=== PATIENT | female | born 1940 | race Caucasian/White ===

== ENCOUNTER 2017-01-15 22:25 | Observation (INO) | payer MEDICARE, OTHER ==
[~2017-01-15] VITALS: Ht 160 cm; Wt 48.9 kg
[2017-01-15 22:30] VITALS: BP 181/71; PULSE 81; RESP 24; O2SAT 100
--- NOTE | 2017-01-15 22:38 | ED.REPORT ---
HPI-Chest Pain 40 and Over Date of Service January 15, 2017 ED Provider: Dr. Pat Pt is a 76 y/o female w/ a hx of CAD s/p CABG x3, HTN, DM, and CKD, presenting to the ED c/o right-sided CP with radiation to the onset 18:00 tonight. She was sitting watching TV and spontaneously began experiencing CP which gradually worsened. She took Nitro x2 at home with no relief. Previous anginal symptoms included CP with radiation to the neck which she is only experiencing mildly today. She c/o associated pleuritic chest pain. Pt denies nausea, vomiting, chills, diaphoresis, cough, SOB. She ate about 1 hour prior to the onset of her pain and has never had a cholecystectomy. Nursing Notes Stated Complaint: CHEST AND SHOULDER PAIN Chief Complaint: Chest Pain Nursing Notes Reviewed: Yes Allergies: Coded Allergies: gemfibrozil (Unverified Allergy, Mild, 01/16/17) Uncoded Allergies: GEMIFIBROZIL (Allergy, Mild, unknown, 01/15/17) Scheduled Aspirin Chew (Aspirin Chew) 81 Mg Chew 81 MG PO DAILY Atorvastatin (Lipitor) 10 Mg Tab 10 MG PO DAILY Cetirizine HCl (Zyrtec) 10 Mg Capsule 10 MG PO DAILY Insul NPH Hu Rec/Ins Rg Hu Rec (Novolin 70/30 U100 Insulin Vial) 100 U/1 Ml U 16 U SUBQ BIDWM Insulin Aspart (NovoLOG U-100 Pen) 100 Unit/Ml Insuln.pen 16 UNITS SQ Brekfast & dinner Isosorbide MN ER (Isosorbide MN ER) 30 Mg Tab.er.24h 30 MG PO DAILY Lipase/Protease/Amylase (Donna COON) 24,000 Unit Capsule 3 PO TIDWM Lipase/Protease/Amylase (Donna COON) 24,000 Unit Capsule 2 CAPSULE PO Before snacks Lisinopril (Lisinopril) 20 Mg Tablet 20 MG PO DAILY Lorazepam (Lorazepam) 0.5 Mg Tablet 0.5 MG PO HS Potassium Citrate ER (Urocit-K) 10 Meq Tablet 10 MEQ PO BID General Time Seen by MD: 22:37 Chief Complaint Chest pain Hx Obtained From: Patient Arrived By: Walk-in Sudden in Onset?: No Onset Occurred: 1 - 4 hours ago Symptom Duration: Since onset Location: : Chest right Quality: Painful Radiation: : Arm right: Shoulder right Severity: Current: Mild Severity: Maximum: Moderate Past Medical History Past Medical History HTN DM CAD s/p CABG x3 CKD Peripheral neuropathy Vitiligo Past Surgical History CABG x3 Smoking History Unknown if Ever Smoker Ambulatory Status Independent Review of Systems Constitutional: Denies: Chills, Fever Respiratory: Reports: Pleuritic pain, Denies: Non-productive cough, Shortness of breath Cardiovascular: Reports: Chest pain, Denies: Dyspnea on exertion, Edema GI: Denies: Abdominal pain, Diarrhea, Nausea, Vomiting Musculoskeletal: Reports: Extremity pain, Denies: Extremity swelling Complete sys rev & neg: except as marked. Physical Exam Initial Vital Signs Vital Signs (First) Date Time Temp Pulse Resp B/P Pulse Ox O2 Delivery O2 Flow Rate FiO2 01/15/17 22:30 81 24 181/71 100 Room Air Initial VS: Reviewed, Vital signs abnormal Head / Eyes: Atraumatic, Normocephalic, PERRL ENT: Mucous membranes moist, Conjunctiva normal, No scleral icterus Neck: Supple, Full range of motion Extremities: Vascular intact, Neuro intact, No swelling, No tenderness Skin: Warm, Dry, No cyanosis Neurologic: Alert, Oriented, Nonfocal Psychiatric: Mood/affect normal, Behavior normal, Normal thought content General/Constitutional: Awake, Alert, No acute distress, Well appearing, Well hydrated, Cooperative, Not toxic appearing Respiratory / Chest: Atraumatic, Breath sounds NL, Breath sounds = bilat, No respiratory distress, No rales, No rhonchi, No wheezing, No retractions, No stridor, No chest tenderness, No chest wall deformity, No crepitus Cardiovascular: Heart rate NL, Regular rhythm, Heart sounds NL, No gallop, No murmurs, No rubs, Cap refill not delayed, Peripheral circulation NL Abdomen: Atraumatic, Soft, Non-tender, No guarding, No rebound, No distention, No palpable mass Tenderness/Guarding/Rebound: Negative: Tender RUQ..., Tender epigastric Interpretation & Diagnostics Lab Results Interpretation Result Diagram: 01/15/175 01/15/172304 Test 01/15/17 23:05 White Blood Count 10.7th/mm3 (3.8-10.1) Red Blood Count 3.84mil/mm3 (3.90-5.20) Hemoglobin 11.8g/dL (12.0-15.6) Hematocrit 32.2% (35.0-46.0) Mean Corpuscular Volume 83.9fL (81-100) Mean Corpuscular Hemoglobin 30.7pg (27.0-35.0) Mean Corpuscular Hemoglobin Concent 36.6% (32.0-37.0) Red Cell Distribution Width 12.3% (12.3-15.4) Platelet Count 188bil/L (150-400) Neutrophils (%) (Auto) 66.4% (40-74) Lymphocytes (%) (Auto) 23.4% (14-46) Monocytes (%) (Auto) 8.4% (4-12) Eosinophils (%) (Auto) 1.5% (0-5) Basophils (%) (Auto) 0.2% (0-3) Prothrombin Time 9.5sec (8.1-12.5) Prothromb Time International Ratio 0.89ratio Activated Partial Thromboplast Time 25.4sec (22.8-33.0) D-Dimer < 0.50mg/L FEU (<0.50) Sodium Level 141mEq/L (134-144) Potassium Level 4.2mEq/L (3.5-5.2) Chloride Level 107mEq/L (97-108) Carbon Dioxide Level 19mmol/L (18-29) Blood Urea Nitrogen 34mg/dL (8-27) Creatinine 1.19mg/dL (0.57-1.00) Estimat Glomerular Filtration Rate 63mL/min (>59) Glucose Level 141mg/dL (60-99) Calcium Level 9.8mg/dL (8.5-10.1) Magnesium Level 1.9mg/dL (1.6-2.6) Total Bilirubin 0.2mg/dL (0.0-1.2) Aspartate Amino Transf (AST/SGOT) 36U/L (0-50) Alanine Aminotransferase (ALT/SGPT) 34U/L (0-32) Alkaline Phosphatase 119U/L (25-165) Pro-B-Type Natriuretic Peptide 158.4pg/mL (0-738) Total Protein 7.6g/dL (6.4-8.4) Albumin 4.6g/dL (3.4-5.0) Triglycerides Level 264mg/dL (0-149) Cholesterol Level 137mg/dL (100-199) LDL Cholesterol, Calculated 50.200mg/dL (0-99) VLDL Cholesterol 52.800mg/dL HDL Cholesterol 34mg/dL (>39) Cholesterol/HDL Ratio 4.03 (0.0-4.4) Hold Villagomez Top Tube Received (Received) ECG Interpretation Time: 22:44 Interpreted by: ED physician Normal ECG Interpretation: Normal ECG w/ rate of... (68), Normal rate, Normal sinus rhythm, No acute ischemic changes, Normal QRS, Normal axis, Normal intervals, Adequate tracing ECG Interpretation: EKG taken once patient reports skipped beats and substernal chest pressure Sinus rhythm rate 79 SA exit block, junctional escape beat Time: 23:10 Interpreted by: ED physician X-Ray Chest Interpretation View: Portable, 1 view Interpretation / Wet Read by: Wet read ED physician NL X-Ray Chest Findings: No infiltrate, No acute disease Re-Eval/Medical Decision Med Decision/Clinical Course 76-year-old with known coronary disease presents with right-sided chest pain it is pleuritic and positional. She also some neck discomfort that is more in keeping with prior anginal presentations. She is diabetic and status post CABG, so not a low risk patient. Initial enzymes are negative. EKG is nonacute. However, she had an episode of irregular heartbeat and was found to have sinoatrial exit block on EKG. Acuity of this finding not clear. Admitted now for ongoing monitoring, completion of rule out protocol, and echocardiography this morning. Source of Hx: Old records Time of Eval: 23:08 Re-Evaluation/Progress Note: Pt is now experiencing irregular palpitations which she describes as skipped beats and her chest pain is becoming pressure and migrating substernally. Obtaining repeat EKG. Time of Eval: 00:40 Re-Evaluation/Progress Note: Pt rechecked. Informed pt of need for admission for CP workup. Pt understands and agrees with plan for admission. All questions addressed. Consultation : Referral / Consult Name: Scott Rodriguez MD Consulted With: Hospitalist Call Returned at: 01:14 Social Work Supervisor: Will see patient, Agrees with eval, Agrees with plan, Accepts admit Counseled Regarding: Diagnosis, Lab results, Need for admission Discharge & Departure Primary Impression: Chest pain Chest pain type: unspecified Qualified Code: R07.9 - Chest pain, unspecified Additional Impressions: Sinoatrial block Pleuritic chest pain Diabetes Coronary artery disease Disposition: ADMITTED TO HOSPITAL Discharge Condition All VS Reviewed: Yes Condition: Stable Scribe Attestation Portions of this note were transcribed by Reji Alan. I, Dr. Fatima personally performed the history, physical exam and medical decision-making; I reviewed and confirmed the accuracy of the information in the transcribed note. Signed by Oseas Goodwin, 01/15/17 - 2249 Thang Pat MD January 15, 2017 22:37 REJI ALAN January 15, 2017 22:46
[2017-01-15] MEDS ORDERED: Nitroglycerin 2% 1 Gm Ointment TOPICAL ONE (22:45)
[2017-01-15] MEDS ORDERED: Ondansetron 2 mg/mL 2 mL Inj IVPUSH ONE (22:45)
[2017-01-15] MEDS ORDERED: Pantoprazole 4 mg/mL 10 mL Inj IVPUSH ONE (22:45)
[2017-01-15 23:29] LABS: BASOPHILS % (AUTO) 0.2 % (0-3); EOSINOPHILS % (AUTO) 1.5 % (0-5); MONOCYTES % (AUTO) 8.4 % (4-12); Mean Corpuscular Hemoglobin 30.7 pg (27.0-35.0); Mean Corpuscular Volume 83.9 fL (81-100); NEUTROPHILS % (AUTO) 66.4 % (40-74); Platelet Count 188 bil/L (150-400)
[2017-01-15 23:39] LABS: D-Dimer < 0.50 mg/L FEU (<0.50); INR 0.89 ratio
[2017-01-15 23:54] LABS: Magnesium 1.9 mg/dL (1.6-2.6); TROPONIN T 0.01 ug/L (0.0-0.011)
[2017-01-16] VITALS (9 sets, daily range): BP systolic 113–156; BP diastolic 54–74; PULSE 55–78; RESP 14–18; O2SAT 97–100
[2017-01-16] MEDS ORDERED: 0.9% Sodium Chloride 1,000 ML IV ONE
[2017-01-16] MEDS ORDERED: HYDROmorphone 0.5 mg/0.5 mL iSecure Syringe IVPUSH PRN (01:15)
[2017-01-16] MEDS ORDERED: 0.9% Sodium Chloride 1,000 ML IV SCH (01:19)
[2017-01-16] MEDS ORDERED: Polyethylene Glycol (PEG) 17 Gm Powder PO PRN (01:20)
[2017-01-16] MEDS ORDERED: Ondansetron 2 mg/mL 2 mL Inj IVPUSH PRN (01:20)
[2017-01-16] MEDS ORDERED: Alum-Mag Hydrox-Simeth 30 mL Suspension PO PRN (01:20)
[2017-01-16] MEDS ORDERED: Senna-Docusate 8.6-50 mg Tablet PO PRN (01:20)
[2017-01-16 02:18] LABS: APPEARANCE,URINE CLEAR (CLEAR,HAZY); COLOR,URINE STRAW (YELLOW); OCCULT BLOOD,URINE NEGATIVE (NEGATIVE); UROBILINOGEN,URINE NORMAL (NORMAL)
[2017-01-16] MEDS: Sodium Chloride LOK Flush 10 mL Syringe IVFLUSH SCH ×2 (02:48→14:18)
--- NOTE | 2017-01-16 02:51 | PCM.HPMED ---
Subjective Date of Service January 16, 2017 Primary Provider: Admitting Physician: Scott Rodriguez MD Primary Care Physician: Humble Attending Physician: Scott Rodriguez MD Chief Complaint: chest pain History of Present Illness: Ms. Eleanor Hook is a very pleasant 76-year-old lady presenting today with acute onset right sided chest and shoulder pain that radiated to neck and arm and right shoulder blade around 1800 last evening. She states that it started when she was sitting watching TV, sharp in nature, aggravated by inspiration and palpation. She stated nothing made it better and she became very concerned. She took 2 nitroglycerin at home with no relief. She denies headache, syncope, fever, chills, cough, nausea, vomiting, diaphoresis, shortness of breath, abdominal pain, change in bowel or bladder. She reports chronic neuropathy in upper and lower extremities. She reports chest pain is currently controlled with pain medication. She has a history significant for coronary artery disease with a triple bypass CABG in the 2000 (saphenous), insulin requiring diabetes, chronic pancreatitis, chronic kidney disease. In the emergency department patient's vitals are as follows; temperature 36.8 C , pulse 81, respiratory rate 24, blood pressure 181/71, pulse ox 100 on room air. CBC-WBC 10.7, hemoglobin 11.8, platelets 188. CMP- sodium 141, potassium 4.2, chloride 109, carbon dioxide 19, BUN/creatinine 34/1.19, glucose 141, AST ALT alkaline phosphatase 36/34/119. Troponins negative 1, proBNP 158.4. UA pending. Chest x-ray- on wet read no acute process or infiltrates. EKG- ER physician read. In the emergency department patient received IV fluids, Zofran, aspirin 324 chewable, nitroglycerin patch, Dilaudid IV, pantoprazole, Toradol. Review of Systems: A comprehensive review of systems was conducted with the patient and found to be negative except as above in the History of Present Illness. Allergies Coded Allergies: gemfibrozil (Unverified Allergy, Mild, 01/16/17) Uncoded Allergies: GEMIFIBROZIL (Allergy, Mild, unknown, 01/15/17) Home Medications Eating PMH HTN DM CAD s/p CABG x3 CKD Peripheral neuropathy Vitiligo Chronic pancreatitis Surgical History CABG x3 (2000) Family History Patient does not know. Social History Hx Alcohol Use: No Hx Substance Use: No Smoking Status: Unknown if Ever Smoker Exam Vital Signs Vital Sign - Last Date Time Temp Pulse Resp B/P Pulse Ox O2 Delivery O2 Flow Rate FiO2 01/15/17 22:30 81 24 181/71 100 Room Air Exam General: Elderly lady lying in bed in no acute distress. Appears much younger than stated age. well-developed, well-nourished, appropriately interactive HEENT: Normocephalic, atraumatic. External ears without defect. Pupils equal, round, and reactive to light and accommodation. Anicteric sclerae, moist conjunctivae, and no lid lag. Oropharynx free of erythema and cobble stoning with moist mucosa. Neck: Supple with full range of motion. No jugular venous distension. No bruits. No lymphadenopathy or thyromegaly. Cardiovascular: Irregular irregular rate and rhythm and rhythm with no murmurs, rubs, or gallops appreciated, prominent S2. Pulmonary: Clear to auscultation bilaterally with no crackles, wheezes, or rhonchi. Normal respiratory effort with no use of accessory muscles. Abdomen: Bowel tones present. Soft, nontender, nondistended. No hepatosplenomegaly or masses appreciated. Extremities: No clubbing, cyanosis, edema, or lymphadenopathy appreciated. Skin: Normal temperature, turgor, and texture; no rash, ulcers, or subcutaneous nodules appreciated. Neurological: Cranial nerves grossly intact. Normal muscle strength, tone, and bulk. Reflexes, coordination, and sensory function within normal limits. No known gait impairment. Psychiatric: Normal mood and affect. Alert and oriented to person, place, and time. Lab and Diagnostics Result Diagram: 01/15/17 2305 01/15/17 2305 Assessment & Plan Ms. Eleanor Hook is a very pleasant 76-year-old lady presenting today with acute onset right sided chest and shoulder pain that radiated to neck and arm and right shoulder blade around 1800 last evening. She states that it started when she was sitting watching TV, sharp in nature, aggravated by inspiration and palpation. She stated nothing made it better and she became very concerned. She took 2 nitroglycerin at home with no relief. She denies headache, syncope, fever, chills, cough, nausea, vomiting, diaphoresis, shortness of breath, abdominal pain, change in bowel or bladder. She reports chronic neuropathy in upper and lower extremities. She reports chest pain is currently controlled with pain medication. She has a history significant for coronary artery disease with a triple bypass CABG in the 2000 (saphenous), insulin requiring diabetes, chronic pancreatitis, chronic kidney disease. Of note patient does report some significant emotional disturbance as of 4 days ago, that has since been resolved. 1. Acute Atypical Chest pain present on admission. Active. History of Coronary artery disease, history of 3X CABG 2000, - Chest pain with EKG rhythm abnormality. - Troponins negative, trend every 6H. - D-dimer negative. - Patient received 325 chewable aspirin. - Nitropatch on. Nitroglycerin sublingual when necessary. - IV Dilaudid received an ER. IV morphine when necessary chest pain. - Remote telemetry. - Exercise stress test in the morning. (Patient reports history of several pharmacologic stress test in the past.) No EMR available to review history.( Patient has a small amount of paper records) - Lipid panel pending. - Continue home statin. 2. Insulin requiring diabetes mellitus, present on admission. Active. - Glucose 141. - A1c pending. - Diabetic diet. - Medium to high dose nutritional and correctional insulin. 3. Acute kidney injury, present on admission. Active. - Creatinine on admission 1.19, unknown baseline. 4. Chronic pancreatitis - Continue home lipase replacement. 5. Peripheral neuropathy. Present admission. I asked. - Continue home gabapentin. Acetaminophen for mild pain when necessary. Bowel regimen Senna and MiraLAX scheduled and PRN. Zofran when necessary for nausea and vomiting. SubQ heparin every 8. SCDs in place. Disposition: Patient has been admitted under observation status. Discharge is dependent upon stress test results. Patient will be discharged home when medically stable. Pain Evaluation: Adequate Pain Control Resuscitation Status: CPR: Attempt Resuscitation Attending Statement The patient was seen and examined together with Dr. Gerardo on 01/16 and I agree with the history, exam and plan as outlined in the note above. MICHELLE GERARDO DO January 16, 2017 01:23 Scott Rodriguez MD January 16, 2017 04:09 MICHELLE GERARDO DO January 16, 2017 01:23 Scott Rodriguez MD January 16, 2017 04:09
[2017-01-16] MEDS ORDERED: Glucose 40% Oral Gel 15 Gm Tube PO PRN ×2 (02:55→12:55)
[2017-01-16] MEDS ORDERED: Dextrose 10% 250 ML IV PRN (03:00)
[2017-01-16] MEDS ORDERED: ASPI81TA3 PO (03:50)
[2017-01-16] MEDS ORDERED: POTA-17 PO (03:50)
[2017-01-16] MEDS ORDERED: ATRV10T PO (03:50)
[2017-01-16] MEDS ORDERED: LIPA1CAP5 PO ×2 (03:50)
[2017-01-16] MEDS ORDERED: ISOS30TA4 PO (03:50)
[2017-01-16] MEDS ORDERED: LISI-567 PO (03:50)
[2017-01-16] MEDS ORDERED: INS7030U SUBQ (03:50)
[2017-01-16] MEDS ORDERED: CETI10CA PO (03:50)
[2017-01-16] MEDS ORDERED: LORA0.5T PO (03:50)
[2017-01-16] MEDS: Heparin 5,000 Unit/mL Inj SUBQ SCH ×2 (03:51→07:55)
[2017-01-16] MEDS ORDERED: INSU100I SQ (03:59)
[2017-01-16] MEDS ORDERED: PEN1DIS.48 MC (03:59)
--- NOTE | 2017-01-16 06:00 | NUR ---
Admit Pt arrived from ER to [facility] # [id number] at 0215. Admission assessment and screening completed. Med-Rec completed. NO overt complication noted.
[2017-01-16] MEDS: Insulin LISPRO 300 Unit/3 mL Inj SUBQ SCH ×2 (07:56→12:03)
[2017-01-16] MEDS ORDERED: Potassium Citrate ER 10 mEq ER24 Tablet PO SCH (08:30)
[2017-01-16] MEDS ORDERED: PROTEASE PO SCH ×2 (08:30→12:00)
[2017-01-16] MEDS ORDERED: LIPASE PO SCH ×2 (08:30→12:00)
[2017-01-16] MEDS ORDERED: AMYLASE PO SCH ×2 (08:30→12:00)
[2017-01-16] MEDS ORDERED: Heparin 5,000 Unit/mL Inj SUBQ SCH (08:30)
[2017-01-16] MEDS ORDERED: Isosorbide Mononitrate 30 mg ER24 Tablet PO SCH (08:30)
--- NOTE | 2017-01-16 08:37 | DRSVH ---
PROCEDURE: X-RAY CHEST ONE VIEW, PORTABLE ([id number]) INDICATIONS: CHEST PAIN TECHNIQUE: One view of the chest was acquired. COMPARISON: None. FINDINGS: Surgical changes and devices: Post median sternotomy. Lungs and pleura: No pleural effusions or pneumothorax. Lungs are clear. Mediastinum: Mediastinal contours appear normal. Heart size is normal. Bones and chest wall: No suspicious bony lesions. Overlying soft tissues appear unremarkable. IMPRESSION: No acute cardiopulmonary disease. Dictated by: Lex Mead [facility] Interpreted: Krystina Townsend MD on 01/16/2017 at 8:37 Transcribed by: JOCY on 01/16/2017 at 8:37 Approved by: Krystina Townsend MD, PhD on 01/16/2017 at 9:39
--- NOTE | 2017-01-16 11:54 | NUR ---
Case Management: MONTOYA and Medicare Part D pamphlet delivered and explained to pt. and spouse. Original placed in chart. Copy left at bedside. Gregoria Cedeno RN
--- NOTE | 2017-01-16 12:57 | DRSVH ---
PROCEDURE: 1 DAY PHARMACOLOGICAL STRESS TEST Rest and pharmacological stress myocardial perfusion SPECT; gated images not acquired. RADIOPHARMACEUTICAL: 8.6 mCi Tc-99m tetrafosmin IV at rest and 24.1 mCi Tc-99m tetrafosmin IV at pea k effect of pharmacological stress. Squ-obz-avclnrxr was performed. INDICATIONS: CHEST PAIN. TECHNIQUE: Radiopharmaceutical was injected at peak stress test, and also at rest. SPECT images wer e obtained. SPECT myocardial perfusion images were displayed in short axis, horizontal long axis, an d vertical long axis views. Images were reviewed using [employer] software. COMPARISON: None. CARDIAC STRESS: A pharmacologic stress test was performed under the supervision of an attending staff, using an infus ion of [employer] . Hemodynamic data: There is normal blood pressure and heart rate response to pharmacologic stress. Symptoms: The patient reported chest pressure at baseline without significant change (3/10 - 4/10) d uring the infusion. Aminophylline: 100 mg EKG: No diagnostic changes of ischemia; no ectopy. FINDINGS: Raw data: There is good myocardial uptake of radiotracer. No significant motion artifacts. ). Left ventricle function: Gated images were unable to be obtained for functional assessment, due to i rregular heart rate. Myocardial perfusion: There is a small area of mildly decreased uptake affecting the apex that cindy lizes on the prone images. Uptake in rest images is not optimal for comparison with stress. No othe r imaging defects appreciated. IMPRESSION: 1. Appropriate hemodynamic response to pharmacologic stress. 2. The patient reported 3/10 chest pressure at baseline that changed to 4/10 with infusion (clinical correlation recommended). No diagnostic ECG changes. 3. No scintigraphic evidence for significant areas of myocardial ischemia at the level of stress achi eved. 4. Gated images not obtained. If an assessment of EF is required, would recommend an echocardiogram Dictated by: Ayah Reyes M.D. on 01/16/2017 at 12:49 Approved by: Ayah Reyes M.D. on 01/16/2017 at 12:56
--- NOTE | 2017-01-16 13:42 | NUR ---
Social Work: Initial Assessment / Readiness for d/c Data: Pt is a 76 y/o female admitted for chest pain. Pt's PCP is not listed. Pt's insurance is Medicare with [employer] supp. EMR reviewed. Readmit score not listed. CAR MECHANIC met with pt at bedside, role explained. Pt states that she lives in [place] with her significant other in a single story home where she uses no DME. Pt reports no hx of HH or SNF, no LTC or VA benefits, and is not a caregiver. Pt states she has been up and independent in the room. No d/c planning needs anticipated at this time. CAR MECHANIC will continue to follow if needs arise. Assessment: Pt who is independent at baseline. Plan: Pt will d/c home via POV when medically stable, possibly today pending stress test per MD in rounds. CAR MECHANIC will continue to follow if needs arise. PARESH Luz Addendum: 01/16/17 at 1350 by SUZAN FERGUSON Amended: Links added.
[2017-01-16] MEDS ORDERED: Insulin LISPRO 300 Unit/3 mL Inj SUBQ SCH (17:30)
--- NOTE | 2017-01-16 17:31 | NUR ---
Pain Patient continues to have pain to chest, shoulder, neck area. Patient pain this morning was a 6/10 and this afternoon has decreased to a 2/10. Patient states pain has never gone away from time of admit. MD aware as she reported this to hospitalist this morning.
--- NOTE | 2017-01-16 18:34 | PCM.DIMED ---
Discharge Instructions Date of Service January 16, 2017 Dates of Hospitalization January 16, 2017 at 01:10 Discharge Diagnosis Discharge Diagnosis chest pain, non-anginal Diet Discharge Diet: Heart Healthy Activity Discharge Activity: No restrictions Call your provider Call your provider for: Shortness of breath, Chest pain Patient Instructions Patient Instructions You were hospitalized with chest pain, initially suspected from heart attack. You underwent stress test, which didn't show any evidence of acute heart attack. It's likely it's associated with your chest muscle or acid reflux. Please follow up with your primary doctor in 2weeks and your mail processing equipment mechanic as well. Follow-up with PCP in: 2 weeks Edwin Wilcox MD January 16, 2017 18:34
--- NOTE | 2017-01-16 18:49 | NUR ---
Discharge Patient requesting discharge. MD notified and discharge orders given. Patient IV removed fully intact and asymptomatic. Patient telemetry removed and nuclear monitoring technician informed. Patient given medication list with next dose written. Patient given follow up instructions.
[2017-01-16] MEDS ORDERED: Pantoprazole 4 mg/mL 10 mL Inj IVPUSH ONE (18:50)
[2017-01-16] MEDS ORDERED: Pantoprazole 20 mg ER24 Tablet PO SCH (20:30)
[2017-01-16] MEDS ORDERED: Insulin GLARgine 100 Unit/mL Syringe SUBQ SCH (21:00)
[2017-01-16] MEDS ORDERED: LORazepam 0.5 mg Tablet PO SCH (21:00)
--- NOTE | 2017-01-17 10:57 | PCM.DC.MED ---
Discharge Summary Date of Service January 16, 2017 Dates of Hospitalization Date of Hospital Admission January 16, 2017 at 01:10 Date of Discharge: January 16, 2017 Providers: Admitting Physician: Scott Rodriguez MD Primary Care Physician: Nopcp Attending Physician: Scott Rodriguez MD Diagnosis at Time of Discharge Diagnosis at Time of Discharge chest pain, non-anginal chronic dx 2. Insulin requiring diabetes mellitus 3. Acute kidney injury or CKD, 4. Chronic pancreatitis, 5. Peripheral neuropathy. Procedures XRay, CTs & MRIs PROCEDURE: X-RAY CHEST ONE VIEW, PORTABLE ([id number]) INDICATIONS: CHEST PAIN TECHNIQUE: One view of the chest was acquired. COMPARISON: None. FINDINGS: Surgical changes and devices: Post median sternotomy. Lungs and pleura: No pleural effusions or pneumothorax. Lungs are clear. Mediastinum: Mediastinal contours appear normal. Heart size is normal. Bones and chest wall: No suspicious bony lesions. Overlying soft tissues appear unremarkable. IMPRESSION: No acute cardiopulmonary disease. Dictated by: Lex Mead RR Interpreted: Krystina Townsend MD on 01/16/2017 at 8:37 Transcribed by: JOCY on 01/16/2017 at 8:37 Approved by: Krystina Townsend MD, PhD on 01/16/2017 at 9:39 Other Diagnostics PROCEDURE: 1 DAY PHARMACOLOGICAL STRESS TEST Rest and pharmacological stress myocardial perfusion SPECT; gated images not acquired. RADIOPHARMACEUTICAL: 8.6 mCi Tc-99m tetrafosmin IV at rest and 24.1 mCi Tc-99m tetrafosmin IV at peak effect of pharmacological stress. [id number]-[id number] was performed. INDICATIONS: CHEST PAIN. TECHNIQUE: Radiopharmaceutical was injected at peak stress test, and also at rest. SPECT images were obtained. SPECT myocardial perfusion images were displayed in short axis, horizontal long axis, and vertical long axis views. Images were reviewed using Auto[employer] software. COMPARISON: None. CARDIAC STRESS: A pharmacologic stress test was performed under the supervision of an attending staff, using an infusion of lexiscan . Hemodynamic data: There is normal blood pressure and heart rate response to pharmacologic stress. Symptoms: The patient reported chest pressure at baseline without significant change (3/10 - 4/10) during the infusion. Aminophylline: 100 mg EKG: No diagnostic changes of ischemia; no ectopy. FINDINGS: Raw data: There is good myocardial uptake of radiotracer. No significant motion artifacts. ). Left ventricle function: Gated images were unable to be obtained for functional assessment, due to irregular heart rate. Myocardial perfusion: There is a small area of mildly decreased uptake affecting the apex that normalizes on the prone images. Uptake in rest images is not optimal for comparison with stress. No other imaging defects appreciated. IMPRESSION: 1. Appropriate hemodynamic response to pharmacologic stress. 2. The patient reported 3/10 chest pressure at baseline that changed to 4/10 with infusion (clinical correlation recommended). No diagnostic ECG changes. 3. No scintigraphic evidence for significant areas of myocardial ischemia at the level of stress achieved. 4. Gated images not obtained. If an assessment of EF is required, would recommend an echocardiogram Dictated by: Ayah Reyes M.D. on 01/16/2017 at 12:49 Approved by: Ayah Reyes M.D. on 01/16/2017 at 12:56 Brief History HPI obtained by on 01/16 Ms. Eleanor Hook is a very pleasant 76-year-old lady presenting today with acute onset right sided chest and shoulder pain that radiated to neck and arm and right shoulder blade around 1800 last evening. She states that it started when she was sitting watching TV, sharp in nature, aggravated by inspiration and palpation. She stated nothing made it better and she became very concerned. She took 2 nitroglycerin at home with no relief. She denies headache, syncope, fever, chills, cough, nausea, vomiting, diaphoresis, shortness of breath, abdominal pain, change in bowel or bladder. She reports chronic neuropathy in upper and lower extremities. She reports chest pain is currently controlled with pain medication. She has a history significant for coronary artery disease with a triple bypass CABG in the 2000 (saphenous), insulin requiring diabetes, chronic pancreatitis, chronic kidney disease. In the emergency department patient's vitals are as follows; temperature 36.8 C , pulse 81, respiratory rate 24, blood pressure 181/71, pulse ox 100 on room air. CBC-WBC 10.7, hemoglobin 11.8, platelets 188. CMP- sodium 141, potassium 4.2, chloride 109, carbon dioxide 19, BUN/creatinine 34/1.19, glucose 141, AST ALT alkaline phosphatase 36/34/119. Troponins negative 1, proBNP 158.4. UA pending. Chest x-ray- on wet read no acute process or infiltrates. EKG- ER physician read. In the emergency department patient received IV fluids, Zofran, aspirin 324 chewable, nitroglycerin patch, Dilaudid IV, pantoprazole, Toradol. Hospital Course Ms. Eleanor Hook is a very pleasant 76-year-old lady presenting today with acute onset right sided chest and shoulder pain that radiated to neck and arm and right shoulder blade around 1800 last evening. She states that it started when she was sitting watching TV, sharp in nature, aggravated by inspiration and palpation. She stated nothing made it better and she became very concerned. She took 2 nitroglycerin at home with no relief. She denies headache, syncope, fever, chills, cough, nausea, vomiting, diaphoresis, shortness of breath, abdominal pain, change in bowel or bladder. She reports chronic neuropathy in upper and lower extremities. She reports chest pain is currently controlled with pain medication. She has a history significant for coronary artery disease with a triple bypass CABG in the 2000 (saphenous), insulin requiring diabetes, chronic pancreatitis, chronic kidney disease. Of note patient does report some significant emotional disturbance as of 4 days ago, that has since been resolved. Brief hospital course 1.non-anginal chest pain patient was admitted with chest pain, which was persistent throughout hospitalization although it was not severe. It was atypical in character, not exertional. EKG/trops were not suggestive of ACS. Patient was given Apirin 325mgm, nitro patch on admission. Given patient's cardiac history 3VD CABG 2000 , patient underwent 1 DAY PHARMACOLOGICAL STRESS TEST, which didn't show any perfusion defect. Since pain is persisted, pt was offered NSAID and PPI and observation for one more night. Patient adamantly wanted to leave the hospital. Pain was unlikely cardiac origin given stress test result, it could possibly from associated with chronic pancreatitis or GERD/PUD or MSK. Lipase was normal and abdomen remained benign on exam. patient was asked to try OTC pain regimen with short term NSAID or tylenol and PPI together to see if pain resolves and follow up with PCP in 1-2weeks. chronic dx 2. Insulin requiring diabetes mellitus, stable, 3. Acute kidney injury or CKD, was not trended as pt left hospital. 4. Chronic pancreatitis, lipase was normal, continued home lipase replacement. 5. Peripheral neuropathy. Continued home gabapentin. Exam Vital Signs (Last) Date Time Temp Pulse Resp B/P Pulse Ox O2 Delivery O2 Flow Rate FiO2 01/16/17 17:08 36.9 64 16 129/54 98 Room Air Exam NAD, comfortably laying down on the bed no JVD, MMM, no LAD RRR, nl s1, s2 no mrg CTAB, no w,c S,ND,NT,normoactive BS+ warm, no edema, pulses 2/2 Test 01/15/17 23:05 01/16/17 01:31 01/16/17 01:58 01/16/17 05:25 White Blood Count 10.7th/mm3 (3.8-10.1) Red Blood Count 3.84mil/mm3 (3.90-5.20) Hemoglobin 11.8g/dL (12.0-15.6) Hematocrit 32.2% (35.0-46.0) Mean Corpuscular Volume 83.9fL (81-100) Mean Corpuscular Hemoglobin 30.7pg (27.0-35.0) Mean Corpuscular Hemoglobin Concent 36.6% (32.0-37.0) Red Cell Distribution Width 12.3% (12.3-15.4) Platelet Count 188bil/L (150-400) Neutrophils (%) (Auto) 66.4% (40-74) Lymphocytes (%) (Auto) 23.4% (14-46) Monocytes (%) (Auto) 8.4% (4-12) Eosinophils (%) (Auto) 1.5% (0-5) Basophils (%) (Auto) 0.2% (0-3) Prothrombin Time 9.5sec (8.1-12.5) Prothromb Time International Ratio 0.89ratio Activated Partial Thromboplast Time 25.4sec (22.8-33.0) D-Dimer < 0.50mg/L FEU (<0.50) Sodium Level 141mEq/L (134-144) Potassium Level 4.2mEq/L (3.5-5.2) Chloride Level 107mEq/L (97-108) Carbon Dioxide Level 19mmol/L (18-29) Blood Urea Nitrogen 34mg/dL (8-27) Creatinine 1.19mg/dL (0.57-1.00) Estimat Glomerular Filtration Rate 63mL/min (>59) Glucose Level 141mg/dL (60-99) Hemoglobin A1c 7.1% (4.8-5.6) Calcium Level 9.8mg/dL (8.5-10.1) Magnesium Level 1.9mg/dL (1.6-2.6) Total Bilirubin 0.2mg/dL (0.0-1.2) Aspartate Amino Transf (AST/SGOT) 36U/L (0-50) Alanine Aminotransferase (ALT/SGPT) 34U/L (0-32) Alkaline Phosphatase 119U/L (25-165) Pro-B-Type Natriuretic Peptide 158.4pg/mL (0-738) Total Protein 7.6g/dL (6.4-8.4) Albumin 4.6g/dL (3.4-5.0) Triglycerides Level 264mg/dL (0-149) Cholesterol Level 137mg/dL (100-199) LDL Cholesterol, Calculated 50.200mg/dL (0-99) VLDL Cholesterol 52.800mg/dL HDL Cholesterol 34mg/dL (>39) Cholesterol/HDL Ratio 4.03 (0.0-4.4) Hold Villagomez Top Tube Received (Received) Hold Urine Received (Received) Urine Color Straw (YELLOW) Urine Appearance Clear (CLEAR,HAZY) Urine pH 5.0 (5.0-8.0) Urine Specific [place] 1.010 (1.003-1.035) Urine Protein Negativemg/dL (NEG,TRACE) Urine Glucose (UA) Negativemg/dL (NEGATIVE) Urine Ketones Negativemg/dL (NEGATIVE) Urine Occult Blood Negative (NEGATIVE) Urine Nitrite Negative (NEGATIVE) Urine Bilirubin Negative (NEGATIVE) Urine Urobilinogen Normalmg/dL (NORMAL) Urine Leukocyte Esterase Negative (NEGATIVE) Urine RBC 0-2/hpf (0-2) Urine WBC 0-5/hpf (0-5) Urine Epithelial Cells Occasional/hpf (NONE-MOD) Urine Crystals None seen (NONE SEEN) Urine Bacteria None/hpf (NONE-FEW) Urine Hyaline Casts None/lpf (NONE) Urine Granular Casts None seen (NONE SEEN) Urine Waxy Casts None seen (NONE SEEN) Urine Red Blood Cell Casts None seen (NONE SEEN) Urine White Blood Cell Casts None seen (NONE SEEN) Urine Mucus None seen (None Seen) Urine Trichomonas None seen (NONE SEEN) Urine Yeast None (NONE SEEN) Urinalysis Comment None Urine Culture Reflexed Not indicated Lipase 4U/L (13-60) Test 01/16/17 12:00 Troponin T < 0.010ug/L (0.0-0.011) Discharge Medications Discharge Medications Aspirin Chew (Aspirin Chew) 81 Mg Chew 81 MG PO DAILY (Reported) Atorvastatin (Lipitor) 10 Mg Tab 10 MG PO DAILY (Reported) Cetirizine HCl (Zyrtec) 10 Mg Capsule 10 MG PO DAILY (Reported) Insul NPH Hu Rec/Ins Rg Hu Rec (Novolin 70/30 U100 Insulin Vial) 100 U/1 Ml U 16 U SUBQ BIDWM (Reported) Insulin Aspart (NovoLOG U-100 Pen) 100 Unit/Ml Insuln.pen 16 UNITS SQ Brekfast & dinner (Reported) Isosorbide MN ER (Isosorbide MN ER) 30 Mg Tab.er.24h 30 MG PO DAILY (Reported) Lipase/Protease/Amylase (Creon DR) 24,000 Unit Capsule 3 PO TIDWM (Reported) Lipase/Protease/Amylase (Creon DR) 24,000 Unit Capsule 2 CAPSULE PO Before snacks (Reported) Lisinopril (Lisinopril) 20 Mg Tablet 20 MG PO DAILY (Reported) Lorazepam (Lorazepam) 0.5 Mg Tablet 0.5 MG PO HS (Reported) Potassium Citrate ER (Urocit-K) 10 Meq Tablet 10 MEQ PO BID (Reported) Durable Medical Equipment Pen Needle, Diabetic (Insulin Pen Needle) 31 Gauge X 1/6" Dis.needle 1 EACH MC ( Reported) (DME) Followup Plan Disposition: home Discharge Diet: Heart Healthy Discharge Activity: No restrictions Patient Instructions You were hospitalized with chest pain, initially suspected from heart attack. You underwent stress test, which didn't show any evidence of acute heart attack. It's likely it's associated with your chest muscle or acid reflux. 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 Follow-up with PCP in: 2 weeks Time spent 65min Edwin Wilcox MD January 17, 2017 10:57
== END 2017-01-16 18:57 | disposition home or self-care (01) ==
LOC: SED 22:25 → MPC 01-16 01:10
PROVIDERS: ADMIT Hospitalist; ATTEND Hospitalist
DX: R07.89 Other chest pain (principal); K86.1 Other chronic pancreatitis; K21.9 Gastro-esophageal reflux disease without esophagitis; E11.22 Type 2 diabetes mellitus with diabetic chronic kidney disease; G62.9 Polyneuropathy, unspecified; M25.511 Pain in right shoulder; I25.10 Atherosclerotic heart disease of native coronary artery without angina pectoris; I12.9 Hypertensive chronic kidney disease with stage 1 through stage 4 chronic kidney disease, or unspecified chronic kidney disease; N18.9 Chronic kidney disease, unspecified; I45.5 Other specified heart block; L80 Vitiligo; Z95.1 Presence of aortocoronary bypass graft; Z79.82 Long term (current) use of aspirin; Z88.8 Allergy status to other drugs, medicaments and biological substances; Z79.4 Long term (current) use of insulin
CPT/HCPCS: 36415; 71010; 78452; 80053; 80061; 81000; 83036; 83690; 83735; 83880; 84484; 85025; 85378; 85610; 85730; 93005; 93017; 96361; 96374; 96375; 99285; A9502; G0378; J0280; J1170; J1644; J1815; J1885; J2405; J2785; J7030